=== PATIENT | female | born 1945 | race Caucasian/White ===

== ENCOUNTER → 2024-12-05 15:10 | Outpatient (REF) | payer OTHER, SELFPAY | LOC: PAVMRI 15:10 | PROVIDERS: ATTENDING PHYSICIAN Physician Assistant Surgical; FAMILY PHYSICIAN Nurse Practitioner Adult Health | DX: M17.11 Unilateral primary osteoarthritis, right knee (principal); M23.91 Unspecified internal derangement of right knee | CPT/HCPCS: 73721 ==

== ENCOUNTER → 2024-12-13 09:53 | Outpatient (REF) | payer OTHER, SELFPAY ==
[2024-12-13 10:41] LABS: Hematocrit 34.9 % (37.0-47.0); Hemoglobin 11.7 g/dL (12.0-16.0); Mean Corp Hgb Conc. 33.5 g/dL (33.0-37.0); Mean Corpuscular Volume 93.3 fL (81.0-99.0); Nucleated Red Blood Cells % 0 %; Platelet Count 224 10^3/uL (130-400); Red Cell Dist. Width 11.8 % (11.5-14.5)
[2024-12-13 11:09] LABS: Blood Urea Nitrogen 23 mg/dl (7-17); Calcium 9.0 mg/dl (8.4-10.2); Carbon Dioxide 24 mmol/L (22-30); Chloride 109 mmol/L (98-107); Glucose 88 mg/dl (70-99); Potassium 4.0 mmol/L (3.5-5.1); Sodium 141 mmol/L (135-145); eGFR > 60.00
== END ==
LOC: REG 09:53
PROVIDERS: ATTENDING PHYSICIAN Specialist; FAMILY PHYSICIAN Nurse Practitioner Adult Health
DX: Z01.818 Encounter for other preprocedural examination (principal)
CPT/HCPCS: 36415; 80048; 85025; 93005

== ENCOUNTER 2024-12-16 07:43 | Emergency (ER) | payer OTHER, SELFPAY ==
[2024-12-16 08:09] VITALS: BP 154/89
--- NOTE | 2024-12-16 09:24 | ED.GENMED ---
History of Present Illness
General
Chief Complaint: Back Pain
Source: patient and spouse
Exam Limitations: none
Time Seen by Provider: 12/16/24 09:06
Nursing documentation reviewed up to this point in time: agreed with
History of Present Illness
History of Present Illness:
79-year-old female past history of hypertension COPD presenting to the emergency department today with concerns of low back pain over the past 2 weeks worse this morning difficulty sleeping secondary to pain. Denies any numbness weakness changes in
bowel movements or urination. No fevers. No urinary symptoms.
Past History
Past History
ED Past Medical History: COPD, HTN and Hypercholesterolemia
ED Past Surgical History: Orthopedic (Right shoulder arthroscopy with repair and distal clavicle resection on 09/04/2020)
Social History
Tobacco: Former smoker
Alcohol: Occasional
Personal:
Living: with family
Review of Systems
Review of Systems
Allergies reviewed?: Yes
All Other Systems: ROS reviewed and negative except as documented in HPI and ROS
Phy Exam
Physical Exam
Physical Exam:
GENERAL: Alert , in no apparent distress
EYE: pupils equal and reactive
NECK: Supple, no significant adenopathy.
ENT: o/p clr, mmm.
CARDIAC: Regular rate and rhythm .
LUNGS: Clear breath sounds bilaterally, no acute respiratory distress, no wheezes/rales/rhonchi
ABDOMEN: Soft, without focal tenderness, no r/g, no cvat
NEUROLOGICAL: Alert and oriented, no focal neuro deficits
SKIN: Warm and dry, skin intact.
MUSCULOSKELETAL: No edema, well perfused.
PSYCH: Normal and appropriate interaction.
Course
Orders/Labs/Results
Orders:
Orders
12/16/24 09:21
Dexamethasone [Decadron] 10 mg PO NOW STA
Diazepam [Valium] 5 mg PO NOW STA
Ketorolac [Toradol] 15 mg IM NOW STA
Lumbar Spine, 2 or 3 View [CR Lumbar Spine 2 Or 3 Views] Urgent
Comment:
Reason For Exam: low back pain
Vital Signs
Initial and Last Documented VS:
Initial Vital Signs
Temp Pulse Resp BP Pulse Ox
98.3 F 74 18 154/89 98
12/16/24 08:09 12/16/24 08:09 12/16/24 08:09 12/16/24 08:09 12/16/24 08:09
Last Documented Vital Signs
Temp Pulse Resp BP Pulse Ox
98.3 F 74 18 154/89 98
12/16/24 08:09 12/16/24 08:09 12/16/24 08:09 12/16/24 08:09 12/16/24 09:25
MDM/Problems Addressed
MDM/Problems Addressed:
79-year-old female presenting to the emergency department today with concerns of low back pain. Difficulty sleeping over the past 2 weeks with the symptoms. Made worse with some positions and movement. Denies any change in bowel movements or
bladder function. No numbness or weakness. No red flag symptoms of back pain x-ray showing degenerative disc issues and arthritis. Plan for symptomatic treatment otherwise close outpatient follow-up. Return precautions given.
*Pulse Oximetry
SaO2: 98
Oxygen Mode of Delivery: Room air
Patient hypoxic: no (98)
*Critical Care Note
Total Time (30-74mins, 75-104mins- exclusive of procedures): Not Applicable
ED Attending Note
-
Portions of this chart may have been created with voice recognition software.� Occasional wrong word or��sound alike� substitutions may have occurred due to the inherent limitations of voice recognition software.
Discharge Plan
Departure
Patient Disposition: Home (Routine Discharge)
Date of Disposition: 12/16/24
Time of Disposition: 11:14
Patient with high blood pressure during this ER visit?: No
Condition: Good
Covid-19: Not Applicable
Discharge Problem:
Back pain
Instructions: Low Back Pain (DC)
Prescriptions:
New
cyclobenzaprine 10 mg tablet
10 mg PO HS PRN (Reason: muscle spasm) Qty: 10 0RF
meloxicam 15 mg tablet
15 mg PO DAILY Qty: 10 0RF
No Action
amlodipine 5 MG tablet
5 mg PO DAILY
Patient Comments:
pt states dose is 5.2 mg
garlic 1,000 MG capsule
1,000 mg PO BID
docosahexaenoic acid-epa 1 CAP capsule
1 cap PO HS
multivitamin with folic acid [Tab-A-Estevan] 1 TABLET tablet
1 tab PO DAILY@1800
Calcium
1 tab PO DAILY
Collagen With C
1 tab PO HS
Ginkoba
1 tab PO HS
hydrocodone-acetaminophen 1 TABLET tablet
1 tab PO Q4HPRN PRN (Reason: pain) Qty: 20 0RF
tamsulosin 0.4 MG capsule
0.4 mg PO DAILY Qty: 4 0RF
ibuprofen 200 MG tablet
600 mg PO Q6H
tiotropium-olodaterol [Stiolto Respimat] 4 GM mist
2 puff IH DAILY
Vitamin B12:
1 tab PO DAILY@1800
celecoxib 200 MG capsule
200 mg PO HS
sulfamethoxazole-trimethoprim 1 TABLET tablet
1 tab PO BID Qty: 10 0RF
tramadol 50 MG tablet
50 mg PO Q8HPRN PRN (Reason: pain) Qty: 25 0RF
phenazopyridine 100 MG tablet
100 mg PO BID Qty: 20 0RF
Referrals:
Miguel Almonte MD [Active, Anesthesiology]
Ashley Mcfarland CRNP [Family Provider, Internal Medicine]
Activity Restrictions/Additional Instructions:
You came to the emergency department today with concerns of back pain. Please take the prescribed medications and follow-up closely with the pain management doctor. Return for any worsening, new or concerning symptoms.
Interventions
Interventions:
*Risk Screen - Suicide Last Done: 12/16/24 08:09
ED-Musculoskeletal Assessment Last Done: 12/16/24 10:30
Discharge Date and Time
Print Language: BRITISH
[2024-12-16] MEDS: TORADOL 15 MG IM (10:13)
[2024-12-16] MEDS: DECADRON 10 MG PO (10:13)
[2024-12-16] MEDS: VALIUM 5 MG PO (10:14)
--- NOTE | 2024-12-16 11:49 | EDRN ---
Pt slipped and fell by her stretcher - did not hurt anything she said it was because she was wearing flip flops. No c/o at this time
== END 2024-12-16 11:51 | disposition home or self-care (01) ==
LOC: EMR 07:43
PROVIDERS: EMERGENCY PHYSICIAN Student in an Organized Health Care Education/Training Program; FAMILY PHYSICIAN Nurse Practitioner Adult Health
DX: M54.50 Low back pain, unspecified (principal); E78.00 Pure hypercholesterolemia, unspecified; J44.9 Chronic obstructive pulmonary disease, unspecified; I10 Essential (primary) hypertension; Z87.891 Personal history of nicotine dependence
CPT/HCPCS: 96372; 99284; 72100

== ENCOUNTER 2024-12-18 04:22 | Emergency (ER) | payer OTHER, SELFPAY ==
[2024-12-18 04:25] VITALS: BP 159/84
[2024-12-18 04:47] VITALS: BP 123/108
--- NOTE | 2024-12-18 04:48 | ED.GENMED ---
History of Present Illness
General
Chief Complaint: Back Pain
Source: patient
Time Seen by Provider: 12/18/24 04:31
History of Present Illness
History of Present Illness:
79-year-old female presents to the emergency room complaining of back pain. Patient Rakan the pain is located in her thoracic back. Nothing really seems to make it much better much worse. She was seen here in the emergency room 2 days ago for
back pain. Pain seem to be more lumbar in nature at that time. She received analgesia here and discharged on meloxicam and Flexeril. states the patient took it and that did not help though she has not taken anything other than 1 dose of
Tylenol in the past 24 hours. No bowel or bladder dysfunction. No weakness numbness or tingling in the lower extremities.
Past History
Past History
ED Past Medical History: COPD, HTN and Hypercholesterolemia
ED Past Surgical History: Orthopedic (Right shoulder arthroscopy with repair and distal clavicle resection on 09/04/2020)
Social History
Tobacco: Former smoker
Alcohol: Occasional
Personal:
Living: with family
Phy Exam
Physical Exam
Physical Exam:
General: Awake, Alert, Oriented X3. No acute distress. Appears stated age
Vitals: unremarkable
Head: Atraumatic
Eyes: Pupils equal, EOMI
Throat: Airway intact, no exudates
Neck: Trachea midline
Lungs: Clear and equal b/l
Heart: Regular rate, no murmurs
Abd: Soft, Nontender, No pulsatile mass
Back: Mild tenderness palpation lower thoracic spine and paraspinal musculature
Neuro: Nonfocal
Skin: Warm, dry, no rash
Extremities: pulses equal b/l, no edema
Course
Orders/Labs/Results
Orders:
Orders
12/18/24 04:45
Acetaminophen [Tylenol] 1,000 mg PO NOW STA
Oxycodone [Roxicodone] 5 mg PO NOW STA
Thoracic Spine 3 Views CR [CR Thoracic Spine 3 Views] Urgent
Comment:
Reason For Exam: back pain
Vital Signs
Initial and Last Documented VS:
Initial Vital Signs
Temp Pulse Resp BP Pulse Ox
98 F 70 18 159/84 98
12/18/24 04:25 12/18/24 04:25 12/18/24 04:25 12/18/24 04:25 12/18/24 04:25
Last Documented Vital Signs
Temp Pulse Resp BP Pulse Ox
98 F 70 18 123/108 98
12/18/24 04:25 12/18/24 04:25 12/18/24 04:25 12/18/24 04:47 12/18/24 04:49
MDM/Problems Addressed
Differential Diagnosis Includes:
Thoracic strain, compression fracture,
MDM/Problems Addressed:
Patient presents with continued back pain. Symptoms improved with treatment here. Imaging shows no acute abnormalities though she does have significant scoliosis. Patient stable for discharge home and outpatient follow-up
*Pulse Oximetry
SaO2: 98
Oxygen Mode of Delivery: Room air
Patient hypoxic: no
*Critical Care Note
Total Time (30-74mins, 75-104mins- exclusive of procedures): Not Applicable
ED Attending Note
-
Portions of this chart may have been created with voice recognition software.� Occasional wrong word or��sound alike� substitutions may have occurred due to the inherent limitations of voice recognition software.
Discharge Plan
Departure
Patient Disposition: Home (Routine Discharge)
Date of Disposition: 12/18/24
Time of Disposition: 05:47
Patient with high blood pressure during this ER visit?: No
Condition: Good
Discharge Problem:
Back pain, thoracic
Prescriptions:
New
oxycodone 5 mg tablet
5 mg PO Q6H PRN (Reason: Pain) Qty: 12 0RF
No Action
amlodipine 5 MG tablet
5 mg PO DAILY
Patient Comments:
pt states dose is 5.2 mg
garlic 1,000 MG capsule
1,000 mg PO BID
docosahexaenoic acid-epa 1 CAP capsule
1 cap PO HS
multivitamin with folic acid [Tab-A-Estevan] 1 TABLET tablet
1 tab PO DAILY@1800
Calcium
1 tab PO DAILY
Collagen With C
1 tab PO HS
Ginkoba
1 tab PO HS
Stiolto Respimat 4 GM mist
2 puff IH DAILY
Vitamin B12:
1 tab PO DAILY@1800
celecoxib 200 MG capsule
200 mg PO HS
cyclobenzaprine 10 mg tablet
10 mg PO HS PRN (Reason: muscle spasm) Qty: 10 0RF
meloxicam 15 mg tablet
15 mg PO DAILY Qty: 10 0RF
Referrals:
Miguel Almonte MD [Active, Anesthesiology]
Ashley Mcfarland CRNP [Family Provider, Internal Medicine]
Interventions
Interventions:
*Risk Screen - Suicide Last Done: 12/18/24 04:25
*General Assessment Last Done: 12/18/24 04:25
*Neglect/Abuse Screening Last Done: 12/18/24 04:25
*ED- Fall Risk Assessment Last Done: 12/18/24 05:02
*ED COVID-19 Vaccine History Last Done: 12/18/24 05:02
*Nursing Disposition Last Done: 12/18/24 05:55
ED-Musculoskeletal Assessment Last Done: 12/18/24 05:04
Discharge Date and Time
Discharge Date/Time: 12/18/24 05:55
Print Language: SRI LANKAN
[2024-12-18] MEDS: ROXICODONE 5 MG PO (04:53)
[2024-12-18] MEDS: TYLENOL 1000 MG PO (04:53)
== END 2024-12-18 05:55 | disposition home or self-care (01) ==
LOC: EMR 04:22
PROVIDERS: EMERGENCY PHYSICIAN Emergency Medicine; FAMILY PHYSICIAN Nurse Practitioner Adult Health
DX: M54.6 Pain in thoracic spine (principal); J44.9 Chronic obstructive pulmonary disease, unspecified; I10 Essential (primary) hypertension; E78.00 Pure hypercholesterolemia, unspecified; Z87.891 Personal history of nicotine dependence
CPT/HCPCS: 99283; 72072

== ENCOUNTER → 2024-12-20 15:55 | Outpatient (REF) | payer OTHER, SELFPAY | LOC: RAD 15:55 | PROVIDERS: ATTENDING PHYSICIAN Registered Nurse | DX: M25.532 Pain in left wrist (principal) | CPT/HCPCS: 73110 ==